=== PATIENT | male | born 1960 ===

== ENCOUNTER 2018-04-12 16:34 | Inpatient (IN) ==
[2018-04-12] MEDS ORDERED: ONDANSETRON 4 MG/2 ML VIAL IV STA (16:47)
[2018-04-12] MEDS ORDERED: MORPHINE 4 MG/1 ML VIAL IV STA ×2 (16:47→17:26)
[2018-04-12] MEDS ORDERED: ASPIRIN 325 MG TABLET PO STA (16:47)
[2018-04-12] MEDS ORDERED: SODIUM CHLORIDE 0.9% 500 ML IV STA (16:47)
[2018-04-12] MEDS ORDERED: NITROGLYCERIN 2% OINT 1 INCH/GM PACK TOP STA (16:47)
[2018-04-12] MEDS ORDERED: ENOXAPARIN 100 MG/ML SYRINGE SUBCUT STA (16:47)
[2018-04-12 17:12] LABS: Basophils # 0.1 10*3/uL (0.0-0.2); Basophils % 0.8 % (0.0-0.8); Eosinophils % 0.6 % (0.00-10.9); Hematocrit 43.9 VOL% (42.0-52.0); Hemoglobin 14.9 GM/DL (14.0-18.0); Immature Granulocytes % 0.2 %; Immature Granulocytes Absolute 0.01 #; Lymphocytes # 2.6 10*3/uL (1.4-4.0); Lymphocytes % 39.6 % (21.2-54.2); Mean Corpuscular HGB Conc 33.9 GM/DL (32-36); Mean Corpuscular Hemoglobin 31 PG (27-34); Mean Corpuscular Volume 91.6 FL (87-102); Mean Platelet Volume 11.1 FL (9.6-12.0); Monocytes # 0.5 10*3/uL (0.11-0.8); Neutrophils # 3.3 10*3/uL (1.4-7.4); Neutrophils % 50.8 % (38.7-73.9); Platelet Count 197 T/CUMM (130-400); Red Blood Count 4.79 MC/CUMM (3.8-5.5); Red Cell Distribution Width 13.4 % (9.3-17.3); White Blood Count 6.5 T/CUMM (4-12)
[2018-04-12 17:20] LABS: PT Patient Result 10.2 SECS
[2018-04-12 17:27] LABS: Albumin 4.2 G/DL (3.4-5.0); Bilirubin,Total 0.6 MG/DL (0.2-1.0); Calcium 8.8 MG/DL (8.5-10.1); Osmolality,Calculated 290.8 MOS/KG (273-304); Potassium 3.7 MMOL/L (3.5-5.1); Total Protein 7.6 G/DL (6.4-8.3)
[2018-04-12] MEDS ORDERED: hydrALAZINE 20 MG/1 ML VIAL IV STA (17:33)
[2018-04-12] MEDS ORDERED: ALUM/MAG/SIMETH/LIDO VISC 1:1 30 ML BOTTLE PO STA (17:33)
[2018-04-12] MEDS ORDERED: ALUM/MAG/SIMETH/LIDO VISC 1:1 30 ML BOTTLE PO ONE (17:34)
[2018-04-12] MEDS ORDERED: PANTOPRAZOLE 40 MG VIAL IV STA (17:47)
[2018-04-12] MEDS ORDERED: NITROGLYCERIN SL 0.4 MG TABLET SL PRN (18:00)
[2018-04-12] MEDS ORDERED: ALBUTEROL/IPRATROPIUM 3 ML NEB RESP TX PRN (19:20)
[2018-04-12] MEDS ORDERED: SODIUM CHLORIDE 0.45% 1,000 ML IV SCH (19:30)
[2018-04-12] MEDS ORDERED: NICOTINE 21 MG/24 HR PATCH TRANSDERM PRN (19:55)
[2018-04-12] MEDS: ROSUVASTATIN 10 MG TABLET PO SCH (20:44)
[2018-04-12] MEDS: ALPRAZolam 0.5 MG TABLET PO PRN (20:44)
[2018-04-12] MEDS: ISOSORBIDE DINITRATE 20 MG TABLET PO SCH (20:44)
[2018-04-12] MEDS: CARVEDILOL 3.125 MG TABLET PO SCH (20:44)
[2018-04-12 20:58] LABS: Folate 9.5 NG/ML (5.4-24.0)
[2018-04-12] MEDS ORDERED: ENOXAPARIN 40 MG/0.4 ML SYRINGE SUBCUT SCH (21:00)
[2018-04-12] MEDS ORDERED: ENOXAPARIN 80 MG/0.8 ML SYRINGE SUBCUT SCH (21:00)
[2018-04-12] MEDS: NITROGLYCERIN 2% OINT 1 INCH/GM PACK TOP SCH (22:03)
[2018-04-13 02:24] LABS: Apearance,Urine CLEAR (Clear); Bilirubin,Urine Negative (Negative); Blood, Urine Negative (Negative); Glucose,Urine (UA) Negative (Negative); Ketones,Urine Negative (Negative); Mucus,Urine Occasional /LPF (Occasional); Nitrite,Urine Negative (Negative); Protein,Urine Negative; RBC,Urine 2 /HPF (0-4); Urine Color Yellow (Yellow); Urine Specific Gravity 1.013 (1.001-1.035); Urine Urobilinogen < 2.0 EU/DL (0.2-1.0); WBC,Urine 1 /HPF (0-6)
[2018-04-13] MEDS ORDERED: NITROGLYCERIN SL 0.4 MG TABLET SL ONE (02:30)
[2018-04-13] MEDS ORDERED: MORPHINE 4 MG/1 ML VIAL ONE (02:34)
[2018-04-13] MEDS ORDERED: MORPHINE 4 MG/1 ML VIAL IV ONE (02:34)
[2018-04-13] MEDS ORDERED: CLOPIDOGREL 300 MG TABLET PO ONE (02:43)
[2018-04-13] MEDS: NITROGLYCERIN 2% OINT 1 INCH/GM PACK TOP SCH ×4 (02:53→18:22)
[2018-04-13 02:55] LABS: Basophils % 0.3 % (0.0-0.8); Eosinophils # 0.1 10*3/uL (0.0-0.87); Eosinophils % 0.7 % (0.00-10.9); Hematocrit 35.8 VOL% (42.0-52.0); Hemoglobin 12.4 GM/DL (14.0-18.0); Immature Granulocytes % 0.2 %; Immature Granulocytes Absolute 0.02 #; Lymphocytes % 32.6 % (21.2-54.2); Mean Corpuscular HGB Conc 34.6 GM/DL (32-36); Mean Corpuscular Hemoglobin 31 PG (27-34); Mean Corpuscular Volume 90.6 FL (87-102); Mean Platelet Volume 10.7 FL (9.6-12.0); Monocytes # 0.7 10*3/uL (0.11-0.8); Monocytes % 7.5 % (1.7-12.7); Neutrophils # 5.4 10*3/uL (1.4-7.4); Neutrophils % 58.7 % (38.7-73.9); Platelet Count 174 T/CUMM (130-400); Red Blood Count 3.95 MC/CUMM (3.8-5.5); Red Cell Distribution Width 13.8 % (9.3-17.3); White Blood Count 9.1 T/CUMM (4-12)
[2018-04-13 03:25] LABS: Calcium 7.5 MG/DL (8.5-10.1); Osmolality,Calculated 280.1 MOS/KG (273-304); Potassium 3.4 MMOL/L (3.5-5.1); Risk Ratio 1.8; Thyroid Stimulating Hormone 4.61 uIU/ml (0.358-3.74)
[2018-04-13] MEDS ORDERED: ENOXAPARIN 80 MG/0.8 ML SYRINGE SUBCUT SCH ×2 (07:00→20:00)
[2018-04-13] MEDS: CARVEDILOL 3.125 MG TABLET PO SCH ×2 (08:08→21:43)
[2018-04-13] MEDS: ISOSORBIDE DINITRATE 20 MG TABLET PO SCH ×2 (08:09→21:43)
[2018-04-13] MEDS: ASPIRIN CHEW 81 MG TABLET PO SCH (08:56)
[2018-04-13] MEDS ORDERED: ASPIRIN EC 81 MG TABLET PO SCH (09:00)
[2018-04-13] MEDS ORDERED: POTASSIUM CHLORIDE 20 MEQ/15 ML UDCUP PO ONE (09:00)
[2018-04-13] MEDS ORDERED: ONDANSETRON 4 MG/2 ML VIAL IV ONE (09:06)
[2018-04-13] MEDS: PANTOPRAZOLE 40 MG TABLET PO SCH (09:08)
[2018-04-13] MEDS ORDERED: DIAZEPAM 5 MG TABLET PO ONE (09:09)
[2018-04-13] MEDS ORDERED: diphenhydrAMINE CAP 25 MG CAPSULE PO ONE (09:09)
[2018-04-13] MEDS ORDERED: LIDOCAINE 1% 20 ML VIAL ONE (09:12)
[2018-04-13 09:19] LABS: CKMB % 7.6 %
[2018-04-13] MEDS ORDERED: diphenhydrAMINE CAP 25 MG CAPSULE ONE (09:22)
[2018-04-13] MEDS ORDERED: DIAZEPAM 5 MG TABLET ONE (09:22)
[2018-04-13] MEDS ORDERED: fentaNYL 100 MCG/2 ML VIAL ONE ×2 (09:43→11:06)
[2018-04-13] MEDS ORDERED: MIDAZOLAM 2 MG/2 ML VIAL ONE (09:43)
[2018-04-13] MEDS ORDERED: HEPARIN 5,000 UNIT/1 ML VIAL ONE (10:04)
[2018-04-13] MEDS ORDERED: TIROFIBAN 5,000 MCG/100 ML PREMIX IV ONE (10:04)
[2018-04-13 10:11] LABS: Hepatitis A Ab IgM Quant 0.15 Index; Hepatitis A Ab IgM Result Negative (Negative); Hepatitis B Core IgM Quant 0.16 Index; Hepatitis B Core IgM Result Negative (Negative); Hepatitis B Surface Ag Quant 0.39 Index; Hepatitis B Surface Ag Result Negative (Negative); Hepatitis C Virus Ab Quant > 11.00 Index; Hepatitis C Virus Ab Result Positive (Negative)
[2018-04-13] MEDS ORDERED: TIROFIBAN 5,000 MCG/100 ML PREMIX IV SCH (10:12)
[2018-04-13] MEDS ORDERED: NITROGLYCERIN DRIP 50 MG/250 ML BOTTLE IV ONE (10:39)
[2018-04-13] MEDS ORDERED: TICAGRELOR 90 MG TABLET ONE (10:47)
[2018-04-13] MEDS: SODIUM CHLORIDE 0.45% 1,000 ML IV SCH ×2 (12:11→13:40)
[2018-04-13 13:14] LABS: CKMB % 7.2 %
[2018-04-13 13:15] LABS: Troponin I Only 7.82 NG/ML (0.00-0.045)
[2018-04-13 14:56] LABS: Apearance,Urine CLEAR (Clear); Bilirubin,Urine Negative (Negative); Blood, Urine Negative (Negative); Glucose,Urine (UA) Negative (Negative); Ketones,Urine Negative (Negative); Nitrite,Urine Negative (Negative); Protein,Urine Negative; RBC,Urine <1 /HPF (0-4); Urine Color Straw (Yellow); Urine Specific Gravity > 1.060 (1.001-1.035); Urine Urobilinogen < 2.0 EU/DL (0.2-1.0); WBC,Urine 1 /HPF (0-6)
[2018-04-13] MEDS ORDERED: SODIUM CHLORIDE 0.45% 1,000 ML IV SCH (17:10)
[2018-04-13 19:38] LABS: CKMB % 5.5 %
[2018-04-13 19:40] LABS: Troponin I Only 8.11 NG/ML (0.00-0.045)
[2018-04-13] MEDS: ROSUVASTATIN 10 MG TABLET PO SCH (21:42)
[2018-04-13] MEDS: TICAGRELOR 90 MG TABLET PO SCH (21:42)
[2018-04-13] MEDS: ALPRAZolam 0.5 MG TABLET PO PRN (21:46)
[2018-04-14] MEDS: NITROGLYCERIN 2% OINT 1 INCH/GM PACK TOP SCH (03:56)
[2018-04-14 05:40] LABS: Basophils % 0.2 % (0.0-0.8); Eosinophils % 0.3 % (0.00-10.9); Hematocrit 37.5 VOL% (42.0-52.0); Hemoglobin 12.6 GM/DL (14.0-18.0); Immature Granulocytes % 0.3 %; Immature Granulocytes Absolute 0.03 #; Lymphocytes # 1.9 10*3/uL (1.4-4.0); Lymphocytes % 17.1 % (21.2-54.2); Mean Corpuscular HGB Conc 33.6 GM/DL (32-36); Mean Corpuscular Hemoglobin 31 PG (27-34); Mean Corpuscular Volume 92.4 FL (87-102); Monocytes # 1.2 10*3/uL (0.11-0.8); Monocytes % 10.3 % (1.7-12.7); Neutrophils % 71.8 % (38.7-73.9); Platelet Count 165 T/CUMM (130-400); Red Blood Count 4.06 MC/CUMM (3.8-5.5); Red Cell Distribution Width 13.6 % (9.3-17.3); White Blood Count 11.2 T/CUMM (4-12)
[2018-04-14 06:12] LABS: CKMB % 3.5 %
[2018-04-14 06:14] LABS: Troponin I Only 5.14 NG/ML (0.00-0.045)
[2018-04-14 06:17] LABS: Calcium 7.8 MG/DL (8.5-10.1)
[2018-04-14 06:18] LABS: Osmolality,Calculated 280.1 MOS/KG (273-304); Potassium 3.7 MMOL/L (3.5-5.1)
[2018-04-14] MEDS: ASPIRIN CHEW 81 MG TABLET PO SCH (09:03)
[2018-04-14] MEDS: PANTOPRAZOLE 40 MG TABLET PO SCH (09:03)
[2018-04-14] MEDS: TICAGRELOR 90 MG TABLET PO SCH ×2 (09:04→21:06)
[2018-04-14] MEDS: ISOSORBIDE DINITRATE 20 MG TABLET PO SCH (09:04)
[2018-04-14] MEDS: CARVEDILOL 3.125 MG TABLET PO SCH ×2 (09:04→21:06)
[2018-04-14] MEDS ORDERED: traMADol 50 MG TABLET PO PRN (11:15)
[2018-04-14] MEDS ORDERED: POLYETHYLENE GLYCOL POWDER 17 GM PACK PO PRN (11:25)
[2018-04-14] MEDS ORDERED: DOCUSATE SODIUM 100 MG CAPSULE PO PRN (11:25)
[2018-04-14] MEDS ORDERED: CLORAZEPATE 3.75 MG TABLET PO PRN (12:07)
[2018-04-14] MEDS: ACETAMINOPHEN 325 MG TABLET PO PRN ×2 (12:43→17:51)
[2018-04-14] MEDS: ACETAMINOPHEN 325 MG TABLET PO SCH ×2 (12:44→21:08)
[2018-04-14] MEDS: GABAPENTIN 100 MG CAPSULE PO SCH ×2 (16:01→21:07)
[2018-04-14] MEDS: ROSUVASTATIN 10 MG TABLET PO SCH (21:07)
[2018-04-14] MEDS: ALPRAZolam 0.5 MG TABLET PO PRN (21:10)
[2018-04-15 07:24] VITALS: BP 119/84
[2018-04-15 08:54] LABS: Basophils % 0.4 % (0.0-0.8); Eosinophils # 0.1 10*3/uL (0.0-0.87); Eosinophils % 0.8 % (0.00-10.9); Hematocrit 38.1 VOL% (42.0-52.0); Immature Granulocytes % 0.2 %; Immature Granulocytes Absolute 0.02 #; Lymphocytes # 1.8 10*3/uL (1.4-4.0); Lymphocytes % 21.8 % (21.2-54.2); Mean Corpuscular HGB Conc 34.1 GM/DL (32-36); Mean Corpuscular Hemoglobin 31 PG (27-34); Mean Corpuscular Volume 91.8 FL (87-102); Mean Platelet Volume 11.2 FL (9.6-12.0); Monocytes # 0.9 10*3/uL (0.11-0.8); Monocytes % 10.7 % (1.7-12.7); Neutrophils # 5.5 10*3/uL (1.4-7.4); Neutrophils % 66.1 % (38.7-73.9); Platelet Count 172 T/CUMM (130-400); Red Blood Count 4.15 MC/CUMM (3.8-5.5); Red Cell Distribution Width 13.6 % (9.3-17.3); White Blood Count 8.3 T/CUMM (4-12)
[2018-04-15] MEDS ORDERED: POLYETHYLENE GLYCOL POWDER 17 GM PACK PO ONE (09:13)
[2018-04-15 09:24] LABS: Calcium 8.8 MG/DL (8.5-10.1); Osmolality,Calculated 281.1 MOS/KG (273-304); Potassium 4.2 MMOL/L (3.5-5.1)
[2018-04-15] MEDS: TICAGRELOR 90 MG TABLET PO SCH (09:26)
[2018-04-15] MEDS: PANTOPRAZOLE 40 MG TABLET PO SCH (09:26)
[2018-04-15] MEDS: ACETAMINOPHEN 325 MG TABLET PO SCH (09:26)
[2018-04-15] MEDS: CARVEDILOL 3.125 MG TABLET PO SCH (09:26)
[2018-04-15] MEDS: ASPIRIN CHEW 81 MG TABLET PO SCH (09:26)
[2018-04-15] MEDS: GABAPENTIN 100 MG CAPSULE PO SCH (09:26)
== END 2018-04-15 13:12 | disposition home or self-care (01) | DRG 247 ==
LOC: N.EDINP 16:34 → N.ED 16:34 → N.2E 19:27 → N.TELES 04-13 13:45
PROVIDERS: ADMIT Internal Medicine; ATTEND Internal Medicine
PROC: CLCCHCL (ICD-10-PCS; 2018-04-13 10:45)